=== PATIENT | male | born 1975 | race Caucasian/White ===

== ENCOUNTER 2017-08-11 10:35 | Observation (INO) | payer MEDICAID ==
[2017-08-11] MEDS: ASPIRIN 325 MG TAB PO (11:15)
[2017-08-11] MEDS: SOD CHLORIDE 0.9% 1,000 ML IV (11:16)
[2017-08-11] MEDS: NITROGLYCERIN 2% 1 GM OINT PKT TD (11:16)
[2017-08-11 11:17] LABS: ADD MAN DIFF? NO
[2017-08-11 11:19] LABS: WHITE BLOOD COUNT 16.5 10^3/ul (4.8-10.8)
[2017-08-11 11:20] LABS: BASOPHIL # 0.1 10^3/ul (0.0-0.1); BASOPHILS % 0.4 % (0.0-2.0); EOSINOPHILS # 0.1 10^3/ul (0.0-0.5); EOSINOPHILS % 0.4 % (0.0-7.0); HEMATOCRIT 45.3 % (42.0-52.0); HEMOGLOBIN 15.3 g/dl (14.0-18.0); LYMPHOCYTES # 1.3 10^3/ul (0.8-2.9); LYMPHOCYTES % 7.9 % (15.0-51.0); MEAN CORPUSCULAR HEMOGLOBIN 29.5 pg (29.0-33.0); MEAN CORPUSCULAR HGB CONC 33.8 g/dl (32.0-37.0); MEAN CORPUSCULAR VOLUME 87.3 fl (82.0-101.0); MEAN PLATELET VOLUME 9.5 fl (7.4-10.4); MONOCYTE # 0.7 10^3/ul (0.3-0.9); MONOCYTES % 4.1 % (0.0-11.0); NEUTROPHIL # 14.3 10^3/ul (1.6-7.5); NEUTROPHILS % 86.7 % (39.0-77.0); PLATELET COUNT 359 10^3/UL (140-415); RED BLOOD COUNT 5.19 10^6/ul (4.70-6.10); RED CELL DISTRIBUTION WIDTH 11.8 % (11.5-14.5)
[2017-08-11 11:40] LABS: ANION GAP 16 (8-16); BLOOD UREA NITROGEN 10 mg/dl (7-20); CALCIUM 9.4 mg/dl (8.4-10.2); CARBON DIOXIDE 24 mmol/L (21-31); CHLORIDE 103 mmol/L (97-110); CREATININE 0.69 mg/dl (0.61-1.24); GLUCOSE 200 mg/dl (70-220); POTASSIUM 3.7 mmol/L (3.5-5.1); SODIUM 139 mmol/L (135-144)
[2017-08-11 11:57] LABS: TROPONIN-I < 0.010 ng/ml (0.000-0.120)
[2017-08-11] MEDS ORDERED: ONDANSETRON 4 MG INJ IV (13:00)
[2017-08-11] MEDS ORDERED: ACETAMINOPHEN 325 MG TAB PO (13:00)
[2017-08-11] MEDS ORDERED: NACL 0.9% 3 ML SYG IV (14:00)
[2017-08-11] MEDS ORDERED: DEXTROSE 50% 50 ML SYRINGE IV ×2 (14:30)
[2017-08-11] MEDS ORDERED: GLUCOSE GEL 15 GRAM TUBE BUCCAL (14:30)
[2017-08-11] MEDS ORDERED: GLUCAGON 1 MG INJ IM (14:30)
[2017-08-11] MEDS ORDERED: GLUCOSE GEL 15 GRAM TUBE PO ×2 (14:30)
[2017-08-11 14:38] LABS: HEMOGLOBIN A1C 7.2 % (0-5.9)
[2017-08-11] MEDS: LOSARTAN 25 MG TAB PO (16:00)
[2017-08-11] MEDS: METOPROLOL (XL) 50 MG TAB PO (16:00)
[2017-08-11] MEDS: ACETAMINOPHEN 325 MG TAB PO (16:13)
[2017-08-11] MEDS ORDERED: NICOTINE POLACRILEX 2 MG GUM BUCCAL (16:30)
[2017-08-11] MEDS ORDERED: NICOTINE (14 MG/24 HR) PATCH TRANSDERM (16:30)
[2017-08-11 17:00] LABS: CREATINE KINASE 68 IU/L (23-200)
[2017-08-11 17:13] LABS: CK INDEX 0.3
[2017-08-11 17:15] LABS: CK-MB < 0.22 ng/ml (0.0-2.4); TROPONIN-I < 0.010 ng/ml (0.000-0.120)
[2017-08-11] MEDS: NICOTINE (14 MG/24 HR) PATCH TRANSDERM (17:29)
[2017-08-11] MEDS: INSULIN ASPART [NOVOLOG] 3 ML PEN SC ×2 (18:05→21:00)
[2017-08-11] MEDS: HYDROCODONE/APAP (5/325) TAB PO (19:03)
[2017-08-11 23:28] LABS: CREATINE KINASE 58 IU/L (23-200)
[2017-08-11 23:41] LABS: CK INDEX 0.4; CK-MB < 0.22 ng/ml (0.0-2.4); TROPONIN-I < 0.012 ng/ml (0.000-0.120)
[2017-08-12] MEDS: ACCU-CHEK XX (02:00)
[2017-08-12 07:33] LABS: ADD MAN DIFF? NO
[2017-08-12 07:38] LABS: BASOPHILS % 0.3 % (0.0-2.0); EOSINOPHILS # 0.2 10^3/ul (0.0-0.5); EOSINOPHILS % 1.2 % (0.0-7.0); HEMATOCRIT 44.1 % (42.0-52.0); HEMOGLOBIN 15.1 g/dl (14.0-18.0); LYMPHOCYTES # 3.2 10^3/ul (0.8-2.9); MEAN CORPUSCULAR HEMOGLOBIN 30.3 pg (29.0-33.0); MEAN CORPUSCULAR HGB CONC 34.2 g/dl (32.0-37.0); MEAN CORPUSCULAR VOLUME 88.4 fl (82.0-101.0); MEAN PLATELET VOLUME 9.6 fl (7.4-10.4); MONOCYTE # 0.8 10^3/ul (0.3-0.9); MONOCYTES % 6.6 % (0.0-11.0); NEUTROPHIL # 8.4 10^3/ul (1.6-7.5); NEUTROPHILS % 66.3 % (39.0-77.0); PLATELET COUNT 345 10^3/UL (140-415); RED BLOOD COUNT 4.99 10^6/ul (4.70-6.10)
[2017-08-12 07:38] LABS: WHITE BLOOD COUNT 12.7 10^3/ul (4.8-10.8)
[2017-08-12] MEDS: INSULIN ASPART [NOVOLOG] 3 ML PEN SC ×2 (08:00→11:27)
[2017-08-12 08:06] LABS: ANION GAP 9 (8-16); BLOOD UREA NITROGEN 10 mg/dl (7-20); CALCIUM 9.1 mg/dl (8.4-10.2); CARBON DIOXIDE 27 mmol/L (21-31); CHLORIDE 108 mmol/L (97-110); CREATININE 0.64 mg/dl (0.61-1.24); GLUCOSE 116 mg/dl (70-220); MAGNESIUM 1.8 mg/dl (1.7-2.5); POTASSIUM 3.8 mmol/L (3.5-5.1); SODIUM 140 mmol/L (135-144)
[2017-08-12] MEDS: NICOTINE (14 MG/24 HR) PATCH TRANSDERM (08:25)
[2017-08-12] MEDS: ASPIRIN 81 MG TAB PO (08:30)
[2017-08-12] MEDS: ENOXAPARIN 40 MG/0.4 ML SYG SC (08:30)
[2017-08-12] MEDS: LOSARTAN 25 MG TAB PO (09:00)
[2017-08-12] MEDS: METOPROLOL (XL) 50 MG TAB PO (09:00)
[2017-08-12] MEDS: REGADENOSON 0.4 MG/5 ML SYG (13:11)
== END 2017-08-12 17:00 | disposition home or self-care (01) ==
LOC: E/R 10:35 → MS4 12:53
DX: R07.9 Chest pain, unspecified (principal); I10 Essential (primary) hypertension; E78.5 Hyperlipidemia, unspecified; E11.9 Type 2 diabetes mellitus without complications; Z79.84 Long term (current) use of oral hypoglycemic drugs; Z72.0 Tobacco use; E66.9 Obesity, unspecified; Z68.37 Body mass index [BMI] 37.0-37.9, adult
CPT/HCPCS: 36415; 71045; 78452; 80048; 82550; 82553; 82962; 83036; 83735; 84484; 85025; 93005; 93017; 93306; 99285-25; G0378

== ENCOUNTER 2017-08-14 22:38 | Emergency (ER) | payer MEDICAID ==
[2017-08-14 23:51] LABS: ADD MAN DIFF? NO
[2017-08-14 23:53] LABS: BASOPHIL # 0.1 10^3/ul (0.0-0.1); BASOPHILS % 0.4 % (0.0-2.0); EOSINOPHILS # 0.2 10^3/ul (0.0-0.5); EOSINOPHILS % 1.6 % (0.0-7.0); HEMATOCRIT 43.3 % (42.0-52.0); HEMOGLOBIN 14.8 g/dl (14.0-18.0); LYMPHOCYTES % 16.1 % (15.0-51.0); MEAN CORPUSCULAR HEMOGLOBIN 30.1 pg (29.0-33.0); MEAN CORPUSCULAR HGB CONC 34.2 g/dl (32.0-37.0); MEAN PLATELET VOLUME 9.3 fl (7.4-10.4); MONOCYTE # 0.7 10^3/ul (0.3-0.9); MONOCYTES % 5.7 % (0.0-11.0); NEUTROPHIL # 9.2 10^3/ul (1.6-7.5); NEUTROPHILS % 75.8 % (39.0-77.0); PLATELET COUNT 351 10^3/UL (140-415); RED BLOOD COUNT 4.92 10^6/ul (4.70-6.10); RED CELL DISTRIBUTION WIDTH 12.2 % (11.5-14.5)
[2017-08-14 23:53] LABS: WHITE BLOOD COUNT 12.2 10^3/ul (4.8-10.8)
[2017-08-15 00:30] LABS: ALANINE AMINOTRANSFERASE 33 IU/L (13-69); ALBUMIN 4.2 g/dl (3.3-4.9); ALKALINE PHOSPHATASE 63 IU/L (42-121); ANION GAP 14 (8-16); ASPARTATE AMINO TRANSFERASE 22 IU/L (15-46); BILIRUBIN,INDIRECT 0.4 mg/dl (0-1.1); BILIRUBIN,TOTAL 0.4 mg/dl (0.2-1.3); BLOOD UREA NITROGEN 9 mg/dl (7-20); CALCIUM 9.3 mg/dl (8.4-10.2); CARBON DIOXIDE 27 mmol/L (21-31); CHLORIDE 104 mmol/L (97-110); CREATININE 0.68 mg/dl (0.61-1.24); GLUCOSE 121 mg/dl (70-220); POTASSIUM 3.6 mmol/L (3.5-5.1); SODIUM 141 mmol/L (135-144); TOTAL PROTEIN 7.7 g/dl (6.1-8.1)
[2017-08-15 00:41] LABS: B-TYPE NATRIURETIC PEPTIDE 12 PG/ML (0-125)
[2017-08-15 01:00] LABS: TROPONIN-I < 0.012 ng/ml (0.000-0.120)
[2017-08-15] MEDS: hydrALAzine 20 MG INJ IV (03:04)
== END 2017-08-15 03:38 | disposition home or self-care (01) ==
LOC: E/R 22:38
DX: I10 Essential (primary) hypertension (principal); R07.9 Chest pain, unspecified; E11.9 Type 2 diabetes mellitus without complications; Z79.82 Long term (current) use of aspirin; Z79.84 Long term (current) use of oral hypoglycemic drugs
CPT/HCPCS: 36415; 70450; 71045; 80053; 83880; 84484; 85025; 93005; 96374; 99285-25

== ENCOUNTER 2017-09-04 16:07 | Emergency (ER) | payer MEDICAID ==
[2017-09-04] MEDS: ACETAMINOPHEN 325 MG TAB PO (18:27)
[2017-09-04] MEDS: ONDANSETRON (ODT) 4 MG TAB ODT (18:27)
[2017-09-04] MEDS: MECLIZINE 12.5 MG TAB PO (18:27)
[2017-09-04 18:57] LABS: ADD UMIC NO; UR ASCORBIC ACID NEGATIVE (NEGATIVE); UR BILIRUBIN (Dip) NEGATIVE (NEGATIVE); UR BLOOD (Dip) NEGATIVE (NEGATIVE); UR CLARITY CLEAR (CLEAR); UR COLOR YELLOW (YELLOW); UR GLUCOSE (Dip) NEGATIVE (NEGATIVE); UR KETONES (Dip) NEGATIVE (NEGATIVE); UR LEUKOCYTE ESTERASE (Dip) NEGATIVE Leu/ul (NEGATIVE); UR NITRITE (Dip) NEGATIVE (NEGATIVE); UR SPECIFIC GRAVITY (Dip) 1.019 (1.003-1.030); UR TOTAL PROTEIN (Dip) NEGATIVE (NEGATIVE); UR UROBILINOGEN (Dip) NEGATIVE (NEGATIVE)
== END 2017-09-04 19:24 | disposition home or self-care (01) ==
LOC: FTE 16:07
DX: R42 Dizziness and giddiness (principal); E11.9 Type 2 diabetes mellitus without complications; I10 Essential (primary) hypertension; F17.210 Nicotine dependence, cigarettes, uncomplicated; Z79.82 Long term (current) use of aspirin; Z79.84 Long term (current) use of oral hypoglycemic drugs
CPT/HCPCS: 81003; 82962; 93005; 99284-25

== ENCOUNTER 2017-11-24 07:34 | Emergency (ER) | payer MEDICAID | END 2017-11-24 09:26 | disposition home or self-care (01) | LOC: E/R 07:34 | DX: R42 Dizziness and giddiness (principal); I10 Essential (primary) hypertension; E11.9 Type 2 diabetes mellitus without complications; F17.210 Nicotine dependence, cigarettes, uncomplicated; Z79.82 Long term (current) use of aspirin; Z79.84 Long term (current) use of oral hypoglycemic drugs | CPT/HCPCS: 71045; 82962; 93005; 99284-25 ==

== ENCOUNTER 2017-12-22 22:27 | Emergency (ER) | payer MEDICAID ==
[2017-12-23 00:34] LABS: ADD MAN DIFF? NO
[2017-12-23] MEDS: KETOROLAC 15 MG INJ IV (00:34)
[2017-12-23] MEDS: ASPIRIN 81 MG TAB PO (00:35)
[2017-12-23 00:38] LABS: BASOPHIL # 0.1 10^3/ul (0.0-0.1); BASOPHILS % 0.5 % (0.0-2.0); EOSINOPHILS # 0.4 10^3/ul (0.0-0.5); EOSINOPHILS % 2.9 % (0.0-7.0); HEMATOCRIT 44.3 % (42.0-52.0); HEMOGLOBIN 15.1 g/dl (14.0-18.0); LYMPHOCYTES # 3.5 10^3/ul (0.8-2.9); LYMPHOCYTES % 29.2 % (15.0-51.0); MEAN CORPUSCULAR HEMOGLOBIN 30.3 pg (29.0-33.0); MEAN CORPUSCULAR HGB CONC 34.1 g/dl (32.0-37.0); MEAN CORPUSCULAR VOLUME 88.8 fl (82.0-101.0); MEAN PLATELET VOLUME 9.3 fl (7.4-10.4); MONOCYTE # 1.1 10^3/ul (0.3-0.9); MONOCYTES % 8.8 % (0.0-11.0); NEUTROPHILS % 58.3 % (39.0-77.0); PLATELET COUNT 337 10^3/UL (140-415); RED BLOOD COUNT 4.99 10^6/ul (4.70-6.10); RED CELL DISTRIBUTION WIDTH 12.1 % (11.5-14.5)
[2017-12-23 00:53] LABS: ANION GAP 13 (5-13); BLOOD UREA NITROGEN 10 mg/dl (7-20); CALCIUM 9.7 mg/dl (8.4-10.2); CARBON DIOXIDE 23 mmol/L (21-31); CHLORIDE 105 mmol/L (97-110); CREATININE 0.72 mg/dl (0.61-1.24); Estimated GFR > 60 mL/min (>60); GLUCOSE 99 mg/dl (70-220); POTASSIUM 3.9 mmol/L (3.5-5.1); SODIUM 141 mmol/L (135-144)
[2017-12-23 01:04] LABS: TROPONIN-I < 0.012 ng/ml (0.000-0.120)
[2017-12-23 04:37] LABS: TROPONIN-I < 0.012 ng/ml (0.000-0.120)
== END 2017-12-23 05:26 | disposition home or self-care (01) ==
LOC: E/R 22:27
DX: R07.89 Other chest pain (principal); E11.9 Type 2 diabetes mellitus without complications; I10 Essential (primary) hypertension; F17.210 Nicotine dependence, cigarettes, uncomplicated; Z79.82 Long term (current) use of aspirin; Z79.84 Long term (current) use of oral hypoglycemic drugs
CPT/HCPCS: 36415; 71045; 80048; 84484; 85025; 93005; 96374; 99285-25

== ENCOUNTER 2018-01-17 19:26 | Emergency (ER) | payer MEDICAID ==
[2018-01-17] MEDS: KETOROLAC 30 MG INJ IV (19:50)
[2018-01-17 19:51] LABS: ADD MAN DIFF? NO
[2018-01-17 19:52] LABS: WHITE BLOOD COUNT 14.4 10^3/ul (4.8-10.8)
[2018-01-17 19:52] LABS: BASOPHIL # 0.1 10^3/ul (0.0-0.1); BASOPHILS % 0.6 % (0.0-2.0); EOSINOPHILS # 0.2 10^3/ul (0.0-0.5); EOSINOPHILS % 1.2 % (0.0-7.0); HEMATOCRIT 47.6 % (42.0-52.0); HEMOGLOBIN 16.1 g/dl (14.0-18.0); LYMPHOCYTES # 2.4 10^3/ul (0.8-2.9); LYMPHOCYTES % 16.3 % (15.0-51.0); MEAN CORPUSCULAR HEMOGLOBIN 29.6 pg (29.0-33.0); MEAN CORPUSCULAR HGB CONC 33.8 g/dl (32.0-37.0); MEAN CORPUSCULAR VOLUME 87.5 fl (82.0-101.0); MEAN PLATELET VOLUME 9.2 fl (7.4-10.4); MONOCYTE # 0.9 10^3/ul (0.3-0.9); MONOCYTES % 6.3 % (0.0-11.0); NEUTROPHIL # 10.8 10^3/ul (1.6-7.5); NEUTROPHILS % 75.3 % (39.0-77.0); PLATELET COUNT 360 10^3/UL (140-415); RED BLOOD COUNT 5.44 10^6/ul (4.70-6.10)
[2018-01-17 20:11] LABS: ANION GAP 16 (5-13); BLOOD UREA NITROGEN 7 mg/dl (7-20); CALCIUM 9.8 mg/dl (8.4-10.2); CARBON DIOXIDE 22 mmol/L (21-31); CHLORIDE 103 mmol/L (97-110); Estimated GFR > 60 mL/min (>60); GLUCOSE 133 mg/dl (70-220); POTASSIUM 3.9 mmol/L (3.5-5.1); SODIUM 141 mmol/L (135-144)
[2018-01-17 20:23] LABS: TROPONIN-I < 0.012 ng/ml (0.000-0.120)
== END 2018-01-17 21:07 | disposition home or self-care (01) ==
LOC: E/R 19:26
DX: R07.9 Chest pain, unspecified (principal); E11.9 Type 2 diabetes mellitus without complications; I10 Essential (primary) hypertension; Z79.84 Long term (current) use of oral hypoglycemic drugs; Z87.891 Personal history of nicotine dependence
CPT/HCPCS: 36415; 71045; 80048; 84484; 85025; 93005; 96374; 99285-25

== ENCOUNTER 2018-02-15 19:15 | Emergency (ER) | payer SELFPAY, MEDICAID | END 2018-02-16 00:06 | disposition left against medical advice (07) | LOC: E/R 19:15 | DX: Z53.21 Procedure and treatment not carried out due to patient leaving prior to being seen by health care provider (principal) ==

== ENCOUNTER 2018-03-10 12:55 | Observation (INO) | payer MEDICAID ==
[2018-03-10] MEDS: INSULIN ASPART [NOVOLOG] 3 ML PEN SC (00:30)
[2018-03-10] MEDS ORDERED: ASPIRIN 81 MG TAB PO (15:59)
[2018-03-10 16:26] LABS: ADD MAN DIFF? NO
[2018-03-10 16:29] LABS: WHITE BLOOD COUNT 10.9 10^3/ul (4.8-10.8)
[2018-03-10 16:29] LABS: BASOPHIL # 0.1 10^3/ul (0.0-0.1); BASOPHILS % 0.6 % (0.0-2.0); EOSINOPHILS # 0.3 10^3/ul (0.0-0.5); EOSINOPHILS % 2.4 % (0.0-7.0); HEMATOCRIT 46.2 % (42.0-52.0); HEMOGLOBIN 15.3 g/dl (14.0-18.0); LYMPHOCYTES # 3.2 10^3/ul (0.8-2.9); LYMPHOCYTES % 29.8 % (15.0-51.0); MEAN CORPUSCULAR HEMOGLOBIN 29.5 pg (29.0-33.0); MEAN CORPUSCULAR HGB CONC 33.1 g/dl (32.0-37.0); MEAN PLATELET VOLUME 9.1 fl (7.4-10.4); MONOCYTE # 0.6 10^3/ul (0.3-0.9); MONOCYTES % 5.1 % (0.0-11.0); NEUTROPHIL # 6.7 10^3/ul (1.6-7.5); NEUTROPHILS % 61.8 % (39.0-77.0); PLATELET COUNT 368 10^3/UL (140-415); RED BLOOD COUNT 5.19 10^6/ul (4.70-6.10)
[2018-03-10 16:48] LABS: ANION GAP 11 (5-13); BLOOD UREA NITROGEN 8 mg/dl (7-20); CALCIUM 9.7 mg/dl (8.4-10.2); CARBON DIOXIDE 23 mmol/L (21-31); CHLORIDE 105 mmol/L (97-110); CREATININE 0.61 mg/dl (0.61-1.24); Estimated GFR > 60 mL/min (>60); GLUCOSE 107 mg/dl (70-220); SODIUM 139 mmol/L (135-144)
[2018-03-10 17:00] LABS: TROPONIN-I < 0.012 ng/ml (0.000-0.120)
[2018-03-10] MEDS ORDERED: ONDANSETRON 4 MG INJ IV ×2 (18:00→18:30)
[2018-03-10] MEDS ORDERED: ACETAMINOPHEN 325 MG TAB PO (18:00)
[2018-03-10] MEDS ORDERED: MAGNESIUM HYDROXIDE 30ML CUP PO (18:30)
[2018-03-10] MEDS ORDERED: NITROGLYCERIN (SL) 0.4 MG TAB SL (18:30)
[2018-03-10] MEDS ORDERED: NACL 0.9% 3 ML SYG IV (18:30)
[2018-03-10] MEDS ORDERED: GLUCOSE GEL 15 GRAM TUBE PO ×2 (18:30)
[2018-03-10] MEDS ORDERED: DOCUSATE SODIUM 100 MG CAP PO (18:30)
[2018-03-10] MEDS ORDERED: DEXTROSE 50% 50 ML SYRINGE IV ×2 (18:30)
[2018-03-10] MEDS ORDERED: GLUCAGON 1 MG INJ IM (18:30)
[2018-03-10] MEDS ORDERED: GLUCOSE GEL 15 GRAM TUBE BUCCAL (18:30)
[2018-03-10] MEDS ORDERED: HYDROCODONE/APAP (5/325) TAB PO (18:30)
[2018-03-10 18:52] LABS: HEMOGLOBIN A1C 6.2 % (0-5.9)
[2018-03-10] MEDS ORDERED: morphine 2 MG INJ IV (19:30)
[2018-03-10 20:15] LABS: ALANINE AMINOTRANSFERASE 26 IU/L (13-69); ALBUMIN 4.6 g/dl (3.3-4.9); ALKALINE PHOSPHATASE 74 IU/L (42-121); ASPARTATE AMINO TRANSFERASE 26 IU/L (15-46); BILIRUBIN,INDIRECT 0.2 mg/dl (0-1.1); BILIRUBIN,TOTAL 0.2 mg/dl (0.2-1.3); TOTAL PROTEIN 8.3 g/dl (6.1-8.1)
[2018-03-10 22:42] LABS: CREATINE KINASE 50 IU/L (23-200)
[2018-03-10 23:02] LABS: CK INDEX 0.4; CK-MB < 0.22 ng/ml (0.0-2.4); TROPONIN-I < 0.012 ng/ml (0.000-0.120)
[2018-03-11] MEDS: PIPER-TAZO 3.375 GM IV (PMX) 100 ML IVPB ×2 (00:25→06:26)
[2018-03-11] MEDS: NICOTINE (7 MG/24 HR) PATCH TRANSDERM ×2 (00:39→08:34)
[2018-03-11] MEDS: ACCU-CHEK XX (02:00)
[2018-03-11] MEDS ORDERED: PANTOPRAZOLE (EC) 40 MG TAB PO (06:00)
[2018-03-11] MEDS: PANTOPRAZOLE (EC) 40 MG TAB PO (06:26)
[2018-03-11 07:10] LABS: ADD MAN DIFF? NO
[2018-03-11 07:12] LABS: WHITE BLOOD COUNT 9.4 10^3/ul (4.8-10.8)
[2018-03-11 07:12] LABS: BASOPHIL # 0.1 10^3/ul (0.0-0.1); BASOPHILS % 0.5 % (0.0-2.0); EOSINOPHILS # 0.2 10^3/ul (0.0-0.5); EOSINOPHILS % 2.2 % (0.0-7.0); HEMATOCRIT 44.7 % (42.0-52.0); HEMOGLOBIN 14.9 g/dl (14.0-18.0); LYMPHOCYTES # 2.8 10^3/ul (0.8-2.9); LYMPHOCYTES % 29.4 % (15.0-51.0); MEAN CORPUSCULAR HEMOGLOBIN 29.4 pg (29.0-33.0); MEAN CORPUSCULAR HGB CONC 33.3 g/dl (32.0-37.0); MEAN CORPUSCULAR VOLUME 88.3 fl (82.0-101.0); MEAN PLATELET VOLUME 9.5 fl (7.4-10.4); MONOCYTE # 0.7 10^3/ul (0.3-0.9); MONOCYTES % 7.6 % (0.0-11.0); NEUTROPHIL # 5.6 10^3/ul (1.6-7.5); NEUTROPHILS % 59.9 % (39.0-77.0); PLATELET COUNT 374 10^3/UL (140-415); RED BLOOD COUNT 5.06 10^6/ul (4.70-6.10); RED CELL DISTRIBUTION WIDTH 11.9 % (11.5-14.5)
[2018-03-11 07:35] LABS: CREATINE KINASE 50 IU/L (23-200)
[2018-03-11 07:37] LABS: ALANINE AMINOTRANSFERASE 33 IU/L (13-69); ALBUMIN 4.2 g/dl (3.3-4.9); ALBUMIN/GLOBULIN RATIO 1.35; ALKALINE PHOSPHATASE 65 IU/L (42-121); ANION GAP 14 (5-13); ASPARTATE AMINO TRANSFERASE 20 IU/L (15-46); BILIRUBIN,INDIRECT 0.8 mg/dl (0-1.1); BILIRUBIN,TOTAL 0.8 mg/dl (0.2-1.3); BLOOD UREA NITROGEN 10 mg/dl (7-20); CALCIUM 9.7 mg/dl (8.4-10.2); CARBON DIOXIDE 26 mmol/L (21-31); CHLORIDE 102 mmol/L (97-110); CHOL/HDL RATIO 3.3 RATIO; CHOLESTEROL 80 mg/dl (100-200); CK INDEX 0.4; CK-MB < 0.22 ng/ml (0.0-2.4); CREATININE 0.64 mg/dl (0.61-1.24); Estimated GFR > 60 mL/min (>60); GLUCOSE 100 mg/dl (70-220); HDL CHOLESTEROL 24 mg/dl (27-67); LDL CHOLESTEROL,CALCULATED 34 mg/dl; POTASSIUM 4.2 mmol/L (3.5-5.1); SODIUM 142 mmol/L (135-144); TOTAL PROTEIN 7.3 g/dl (6.1-8.1); TRIGLYCERIDES 108 mg/dl (0-149); TROPONIN-I < 0.012 ng/ml (0.000-0.120)
[2018-03-11] MEDS: INSULIN ASPART [NOVOLOG] 3 ML PEN SC ×2 (07:55→11:50)
[2018-03-11] MEDS: LOSARTAN 50 MG TAB PO (08:32)
[2018-03-11] MEDS: ACETAMINOPHEN 325 MG TAB PO (08:32)
[2018-03-11] MEDS: ATORVASTATIN 20 MG TAB PO (08:33)
[2018-03-11] MEDS: AMLODIPINE 5 MG TAB PO (08:33)
[2018-03-11] MEDS: METOPROLOL (XL) 50 MG TAB PO (08:33)
[2018-03-11] MEDS: ASPIRIN (EC) 81 MG TAB PO (08:33)
[2018-03-11] MEDS: ENOXAPARIN 40 MG/0.4 ML SYG SC (09:11)
== END 2018-03-11 13:00 | disposition home or self-care (01) ==
LOC: E/R 12:55 → TEL 17:43
DX: R07.89 Other chest pain (principal); R10.11 Right upper quadrant pain; E11.9 Type 2 diabetes mellitus without complications; I10 Essential (primary) hypertension; Z79.84 Long term (current) use of oral hypoglycemic drugs
CPT/HCPCS: 36415; 71045; 76705; 80048; 80053; 80061; 80076; 82550; 82553; 82962; 83036; 83735; 84443; 84484; 85025; 93005; 93306; 99285-25; G0378

== ENCOUNTER 2018-05-12 15:54 | Emergency (ER) | payer MEDICAID ==
[2018-05-12] MEDS: KETOROLAC 30 MG INJ IV (17:25)
[2018-05-12 17:29] LABS: ADD MAN DIFF? NO
[2018-05-12 17:40] LABS: BASOPHIL # 0.1 10^3/ul (0.0-0.1); BASOPHILS % 0.6 % (0.0-2.0); EOSINOPHILS # 0.2 10^3/ul (0.0-0.5); EOSINOPHILS % 1.4 % (0.0-7.0); HEMATOCRIT 47.5 % (42.0-52.0); HEMOGLOBIN 15.9 g/dl (14.0-18.0); LYMPHOCYTES # 2.3 10^3/ul (0.8-2.9); LYMPHOCYTES % 18.2 % (15.0-51.0); MEAN CORPUSCULAR HEMOGLOBIN 29.8 pg (29.0-33.0); MEAN CORPUSCULAR HGB CONC 33.5 g/dl (32.0-37.0); MEAN PLATELET VOLUME 9.4 fl (7.4-10.4); MONOCYTE # 0.8 10^3/ul (0.3-0.9); MONOCYTES % 6.2 % (0.0-11.0); NEUTROPHIL # 9.3 10^3/ul (1.6-7.5); PLATELET COUNT 387 10^3/UL (140-415); RED BLOOD COUNT 5.34 10^6/ul (4.70-6.10)
[2018-05-12 17:40] LABS: WHITE BLOOD COUNT 12.7 10^3/ul (4.8-10.8)
[2018-05-12 18:00] LABS: ANION GAP 12 (5-13); BLOOD UREA NITROGEN 7 mg/dl (7-20); CALCIUM 9.8 mg/dl (8.4-10.2); CARBON DIOXIDE 24 mmol/L (21-31); CHLORIDE 106 mmol/L (97-110); CREATININE 0.65 mg/dl (0.61-1.24); Estimated GFR > 60 mL/min (>60); GLUCOSE 117 mg/dl (70-220); SODIUM 142 mmol/L (135-144)
[2018-05-12 18:10] LABS: TROPONIN-I < 0.012 ng/ml (0.000-0.120)
== END 2018-05-12 19:32 | disposition home or self-care (01) ==
LOC: FTE 15:54
DX: R20.2 Paresthesia of skin (principal); R07.9 Chest pain, unspecified
CPT/HCPCS: 36415; 71045; 80048; 84484; 85025; 93005; 96374; 99285-25